=== PATIENT | male | born 1980 | race African-American/Black ===

== ENCOUNTER 2016-10-10 16:51 | Emergency (ER) | payer SELFPAY ==
[2016-10-10 17:03] VITALS: BP 146/75
[2016-10-10] MEDS ORDERED: NS 0.9% 1000 ML* 2,000 ML IV ONE (17:16)
[2016-10-10] MEDS ORDERED: Ondansetron INJ* 2 MG/ML VIAL IV ONE (17:16)
[2016-10-10 17:30] LABS: Hematocrit 50 % (42-52); Hemoglobin 16.5 g/dl (14.0-18.0); Mean Corpuscular HGB Conc 33 g/dl (31-36); Mean Corpuscular Hemoglobin 27 pg (27-31); Mean Corpuscular Volume 82 fL (80-94); Mean Platelet Volume 9 um3 (7.4-10.4); Red Cell Distribution Width 14 % (10.5-15); White Blood Count 7.9 10^3/ul (3.5-10.8)
[2016-10-10 17:42] LABS: Albumin 4.9 g/dL (3.2-5.2); BUN/Creatinine Ratio 13.3 (8-20); C Reactive Protein 3.52 mg/L (< 5.00); Calcium 9.7 mg/dL (8.6-10.3); EGFR Non-African American 80.9 (>60); Globulin 3.1 g/dL (2-4); Total Bilirubin 1.2 mg/dL (0.2-1.0)
[2016-10-10] MEDS ORDERED: Ondansetron ODT TAB* 4 MG PO PRN (18:54)
[2016-10-10] MEDS ORDERED: Ondansetron ODT TAB* 4 MG ONE (18:59)
--- NOTE | 2016-10-11 00:09 | ED ---
Kiki Ulloa Erika, scribed for John Rajput MD on 10/10/16 at 1713 . GI/ HPI - HPI Summary HPI Summary: Patient is a 36-year-old male presenting to the ED with a CC of nausea, vomiting , and diarrhea. Pt reports that he felt well this morning, and had a normal breakfast of oatmeal, bread, and a bagel. At 9 am, pt developed symptoms. These include nausea, multiple episodes of vomiting, and 5-6 loose stools. Pt does also note some abdominal pain that he believes is secondary to vomiting. Pt was given zofran, but states he vomited before the tab could be dissolved. He is feeling slightly improved currently. Hx PKD. - History of Current Complaint Chief Complaint: EDNauseaVomitDiarrh Stated Complaint: VOMITING,DIARRHEA Hx Obtained From: Patient Onset/Duration: Started Hours Ago, Atraumatic, Still Present Timing: Constant Severity: Moderate Pain Intensity: 3 Location of Pain: Diffuse Pain Characteristics: Other: - feels secondary to vomiting Associated Signs and Symptoms: Positive: Nausea, Vomiting, Diarrhea Aggravating Factor(s): Food Alleviating Factor(s): Nothing - Allergy/Home Medications Allergies/Adverse Reactions: Allergies Allergy/AdvReac Type Severity Reaction Status Date / Time No Known Allergies Allergy Verified 10/10/16 17:00 PMH/Surg Hx/FS Hx/Imm Hx Endocrine/Hematology History: Denies: Hx Diabetes History: Reports: Other Problems/Disorders - PKD Infectious Disease History: No Infectious Disease History: Denies: Traveled Outside the [place] in Last 30 Days - Family History Known Family History: Positive: Renal Disease - PKD - Social History Occupation: Employed Full-time Alcohol Use: None Hx Tobacco Use: No Smoking Status (MU): Never Smoked Tobacco Review of Systems Negative: Fever Positive: Vomiting, Diarrhea, Nausea All Other Systems Reviewed And Are Negative: Yes Physical Exam Triage Information Reviewed: Yes Vital Signs On Initial Exam: Initial Vitals Temp Pulse Resp BP Pulse Ox 99.4 F 87 18 146/75 100 10/10/16 17:00 10/10/16 17:00 10/10/16 17:00 10/10/16 17:00 10/10/16 17:00 Vital Signs Reviewed: Yes Appearance: Positive: Well-Appearing, No Pain Distress Skin: Positive: Warm, Skin Color Reflects Adequate Perfusion, Dry Head/Face: Positive: Normal Head/Face Inspection Eyes: Positive: Normal ENT: Positive: Normal ENT inspection Neck: Positive: Supple, Nontender Respiratory/Lung Sounds: Positive: Clear to Auscultation, Breath Sounds Present Cardiovascular: Positive: RRR Abdomen Description: Positive: Nontender, Soft Bowel Sounds: Positive: Present Musculoskeletal: Positive: Normal Neurological: Positive: Normal Psychiatric: Positive: Affect/Mood Appropriate Diagnostics - Vital Signs Vital Signs Temp Pulse Resp BP Pulse Ox 10/10/16 17:00 99.4 F 87 18 146/75 100 - Laboratory Lab Results: Lab Results 10/10/16 10/10/16 10/10/16 Range/Units 17:10 17:10 17:10 WBC 7.9 (3.5-10.8) 10^3/ul RBC 6.10 H (4.0-5.4) 10^6/ul Hgb 16.5 (14.0-18.0) g/dl Hct 50 (42-52) % MCV 82 (80-94) fL MCH 27 (27-31) pg MCHC 33 (31-36) g/dl RDW 14 (10.5-15) % Plt Count 179 (150-450) 10^3/ul MPV 9 (7.4-10.4) um3 Neut % (Auto) 93.1 H (38-83) % Lymph % (Auto) 1.8 L (25-47) % Archuleta % (Auto) 3.6 (1-9) % Eos % (Auto) 1.3 (0-6) % Baso % (Auto) 0.2 (0-2) % Absolute Neuts (auto) 7.3 (1.5-7.7) 10^3/ul Absolute Lymphs (auto) 0.1 L (1.0-4.8) 10^3/ul Absolute Monos (auto) 0.3 (0-0.8) 10^3/ul Absolute Eos (auto) 0.1 (0-0.6) 10^3/ul Absolute Basos (auto) 0 (0-0.2) 10^3/ul Absolute Nucleated RBC 0 10^3/ul Nucleated RBC % 0 Sodium 135 (133-145) mmol/L Potassium 4.0 (3.5-5.0) mmol/L Chloride 101 (101-111) mmol/L Carbon Dioxide 28 (22-32) mmol/L Anion Gap 6 (2-11) mmol/L BUN 14 (6-24) mg/dL Creatinine 1.05 (0.67-1.17) mg/dL Est GFR ( Amer) 104.0 (>60) Est GFR (Non-Af Amer) 80.9 (>60) BUN/Creatinine Ratio 13.3 (8-20) Glucose 98 (70-100) mg/dL Lactic Acid 1.5 (0.5-2.0) mmol/L Calcium 9.7 (8.6-10.3) mg/dL Total Bilirubin 1.20 H (0.2-1.0) mg/dL AST 20 (13-39) U/L ALT 21 (7-52) U/L Alkaline Phosphatase 50 (34-104) U/L C-Reactive Protein 3.52 (< 5.00) mg/L Total Protein 8.0 (6.4-8.9) g/dL Albumin 4.9 (3.2-5.2) g/dL Globulin 3.1 (2-4) g/dL Albumin/Globulin Ratio 1.6 (1-3) Lipase 24 (11.0-82.0) U/L Result Diagrams: 10/10/16 17:10 10/10/16 17:10 Lab Statement: Any lab studies that have been ordered have been reviewed, and results considered in the medical decision making process. Re-Evaluation - Re-Evaluation First Eval Re-Evaluation Time: 18:54 Change: Improved Comment: Patient will be discharged at this time GIGU Course/Dx - Course Course Of Treatment: Norris Anderson came to work routinely this morning abut began to have epidsodes of diarrhea followed by the slow onset of nausea and then spent several hours vomiting. He was rehydrated here, electrolytes checked and given zofran for nausea. He felt a lot better and was D/C'd. - Diagnoses Provider Diagnoses: Gastroenteritis Discharge - Discharge Plan Condition: Stable Disposition: HOME Patient Education Materials: Gastroenteritis (ED) Referrals: [facility] – [place] [facility] [Outside] The documentation as recorded by the Kiki sunshine Erika accurately reflects the service I personally performed and the decisions made by me, John Rajput MD.
== END 2016-10-10 19:11 | disposition home or self-care (01) ==
LOC: ED 16:51
DX: K52.9 Noninfective gastroenteritis and colitis, unspecified (principal); R11.2 Nausea with vomiting, unspecified; R19.7 Diarrhea, unspecified
CPT/HCPCS: 36415; 80053; 83605; 83690; 85025; 86140; 96361; 96374; 99283; A9270-GY; J2405